=== PATIENT | female | born 1955 | race Caucasian/White ===

== ENCOUNTER 2016-09-10 12:57 | Emergency (ER) | payer MEDICAID | END 2016-09-10 22:13 | disposition home or self-care (01) | LOC: D.ER 12:57 | DX: S39.012A Strain of muscle, fascia and tendon of lower back, initial encounter (principal); W10.9XXA Fall (on) (from) unspecified stairs and steps, initial encounter; Y93.89 Activity, other specified; Y92.019 Unspecified place in single-family (private) house as the place of occurrence of the external cause; S80.11XA Contusion of right lower leg, initial encounter; S80.01XA Contusion of right knee, initial encounter; F41.9 Anxiety disorder, unspecified; I48.91 Unspecified atrial fibrillation; Z95.0 Presence of cardiac pacemaker ==

== ENCOUNTER → 2016-10-08 12:40 | Outpatient (CLI) | payer MEDICAID | END | disposition home or self-care (01) | LOC: D.CT 10-03 10:00 | DX: M25.551 Pain in right hip (principal) ==

== ENCOUNTER 2016-10-08 13:44 | Emergency (ER) | payer MEDICAID | END 2016-10-08 19:39 | disposition home or self-care (01) | LOC: D.ER 13:44 | DX: T14.8 Other injury of unspecified body region (principal); X58.XXXA Exposure to other specified factors, initial encounter; Y93.89 Activity, other specified; Y92.019 Unspecified place in single-family (private) house as the place of occurrence of the external cause; F17.200 Nicotine dependence, unspecified, uncomplicated; Z95.0 Presence of cardiac pacemaker ==

== ENCOUNTER 2017-01-31 11:48 | Emergency (ER) | payer MEDICAID | END 2017-01-31 13:29 | disposition home or self-care (01) | LOC: D.ER 11:48 | DX: S16.1XXA Strain of muscle, fascia and tendon at neck level, initial encounter (principal); X50.0XXA Overexertion from strenuous movement or load, initial encounter; Y93.89 Activity, other specified; Y92.019 Unspecified place in single-family (private) house as the place of occurrence of the external cause; M62.838 Other muscle spasm; F17.200 Nicotine dependence, unspecified, uncomplicated ==

== ENCOUNTER → 2017-02-20 18:17 | Outpatient (CLI) | payer MEDICAID | END | disposition home or self-care (01) | LOC: D.MAMMO 12-27 14:30 | DX: Z12.31 Encounter for screening mammogram for malignant neoplasm of breast (principal) ==

== ENCOUNTER 2017-07-26 11:51 | Emergency (ER) | payer MEDICAID | END 2017-07-26 12:45 | disposition home or self-care (01) | LOC: D.ER 11:51 | DX: M54.30 Sciatica, unspecified side (principal); M62.838 Other muscle spasm; F17.200 Nicotine dependence, unspecified, uncomplicated ==

== ENCOUNTER 2019-01-18 13:53 | Emergency (ER) | payer MEDICARE, MEDICAID ==
[~2019-01-18] VITALS: Ht 170.2 cm; Wt 59.5 kg
[2019-01-18 13:57] VITALS: Ht 170.2 cm; Wt 59.5 kg
[2019-01-18] MEDS ORDERED: LANOXIN125 MCG PO (14:02)
[2019-01-18] MEDS ORDERED: RYTHMOL SR325 MG PO (14:02)
[2019-01-18] MEDS ORDERED: COREG 3.1253.125 MG PO (14:03)
[2019-01-18] MEDS ORDERED: HYDROCODON-ACE1 EA10 PO (14:03)
[2019-01-18] MEDS ORDERED: MORPHINE SULFAT15 M4 PO (14:04)
[2019-01-18] MEDS ORDERED: VOLTAREN75 MG PO (15:04)
[2019-01-18 16:03] VITALS: BP 162/85
== END 2019-01-18 16:03 | disposition home or self-care (01) ==
LOC: D.ER 13:53
DX: S99.911A Unspecified injury of right ankle, initial encounter (principal); X50.1XXA Overexertion from prolonged static or awkward postures, initial encounter; Y93.89 Activity, other specified; Y92.89 Other specified places as the place of occurrence of the external cause

== ENCOUNTER 2019-05-23 14:07 | Emergency (ER) | payer MEDICARE, MEDICAID ==
[~2019-05-23] VITALS: Ht 170.2 cm; Wt 58.2 kg
[~2019-05-23 14:07] MED LIST: COREG 3.1253.125 MG PO; HYDROCODON-ACE1 EA10 PO; LANOXIN125 MCG PO; MORPHINE SULFAT15 M4 PO; RYTHMOL SR325 MG PO; VOLTAREN75 MG PO
[2019-05-23 14:12] VITALS: Ht 170.2 cm; Wt 58.2 kg
[2019-05-23 14:39] LABS: BASOPHILS 0.3 % (0-2); EOSINOPHILS 1.9 % (0-7); HEMATOCRIT 53.4 % (36.0-48.0); HEMOGLOBIN 17.7 g/dL (12-16); IMMATURE GRANULOCYTES 0.2 % (0-5); MCH 32.5 pg (26.0-34.0); MCHC 33.1 g/dL (31.0-37.0); MONOCYTES 11.1 % (2-11); NEUTROPHILS 63.5 % (40-80); PLATELET COUNT 242 10x3/uL (130-400); RBC 5.45 10x6/uL (4.00-5.40); RDW 12.1 % (11.5-14.5)
[2019-05-23 14:46] LABS: APPEARANCE CLEAR (CLEAR); APTT 30.8 SECONDS (22.8-39.4); BILIRUBIN NEGATIVE (NEGATIVE); COLOR YELLOW (YELLOW); GLUCOSE NEGATIVE (NEGATIVE); INR 1.05 (0.85-1.17); KETONE NEGATIVE (NEGATIVE); NITRITE NEGATIVE (NEGATIVE); PROTEIN TRACE mg/dL (NEGATIVE); PROTIME 13.2 SECONDS (11.6-15.0); UROBILINOGEN NORMAL (NORMAL)
[2019-05-23 14:47] LABS: BACTERIA FEW /hpf (NEGATIVE); EPITHELIAL CELLS 0-5 /hpf (0-5); RED CELLS - URINE RARE /hpf (0-5); WHITE CELLS - URINE OCC /hpf (NEGATIVE)
[2019-05-23 14:48] LABS: CALC OSMOLALITY 269 mosm/kg (275-300); CALCIUM 9.4 mg/dL (8.5-10.1); CARBON DIOXIDE 32.5 mmol/L (21.0-32.0); CHLORIDE - SERUM 96 mmol/L (98-107); CREATININE - SERUM 0.9 mg/dL (0.6-1.3); GLUCOSE 101 mg/dL (74-106); POTASSIUM - SERUM 4.7 mmol/L (3.5-5.1); SODIUM 136 mmol/L (136-145); UREA NITROGEN 8 mg/dL (7-18); eGFR NON AFRICAN AMERICAN 67 mL/min (90-120)
[2019-05-23 14:51] LABS: UDS - AMPHET NEGATIVE QUAL (NEGATIVE); UDS - BARB NEGATIVE QUAL (NEGATIVE); UDS - BENZO POSITIVE QUAL (NEGATIVE); UDS - COCAINE NEGATIVE QUAL (NEGATIVE); UDS - OPIATE POSITIVE QUAL (NEGATIVE); UDS - PCP NEGATIVE QUAL (NEGATIVE); UDS - THC NEGATIVE QUAL (NEGATIVE)
[2019-05-23 15:03] LABS: ALKALINE PHOSPHATASE 80 U/L (46-116); ALT (SGPT) 26 U/L (10-68); BILIRUBIN - TOTAL 0.78 mg/dL (0.2-1.3); CKMB 0.9 U/L (0.0-3.6); CREATINE KINASE 61 UL (21-215); MAGNESIUM - SERUM 1.9 mg/dL (1.8-2.4); PROTEIN - SERUM 8.1 g/dL (6.4-8.2)
[2019-05-23 15:10] LABS: TROPONIN-I < 0.017 ng/mL (0.000-0.060)
[2019-05-23] MEDS ORDERED: KEFLEX500 MG PO (16:10)
[2019-05-23 16:24] VITALS: BP 118/73
== END 2019-05-23 16:24 | disposition home or self-care (01) ==
LOC: D.ER 14:07
PROVIDERS: Family Medicine
DX: R51 Headache (principal); F41.9 Anxiety disorder, unspecified; N39.0 Urinary tract infection, site not specified; Z95.0 Presence of cardiac pacemaker; I48.91 Unspecified atrial fibrillation